=== PATIENT | female | born 1945 | race Caucasian/White ===

== ENCOUNTER 2018-12-12 15:27 | Emergency (ER) | payer OTHER ==
--- NOTE | 2018-12-12 15:38 | PDOC ---
Rapid Medical Evaluation Time Seen by Provider: 12/12/18 15:36 Medical Evaluation: Allergies Allergy/AdvReac Type Severity Reaction Status Date / Time EVENS Inhibitors Allergy Severe lip Unverified 08/16/12 15:31 swelling amoxicillin [Amoxicillin] Allergy Intermediate Itching Unverified 08/16/12 15:31 esomeprazole magnesium Allergy Intermediate Swelling Verified 12/22/11 09:26 [From Nexium] latex Allergy Mild Itching Verified 12/22/11 09:26 broccoli AdvReac Intermediate Itching Uncoded 08/16/12 15:33 coliflawer AdvReac Intermediate Itching Uncoded 08/16/12 15:33 watermelon AdvReac Intermediate Itching Uncoded 08/16/12 15:33 12/12/18 15:36 Patient had brief in-person examination in triage cc:lower abdominal pain today and dysuria with retention HPI: alert and oriented x 3 + tenderness in lower abdomen orders: u/a and urine culture This patient will proceed to ed for further evaluation Discharge Disposition - Diagnosis Dysuria - Referrals - Patient Instructions - Post Discharge Activity
[2018-12-12 15:39] VITALS: BMI 29.2
[2018-12-12] MEDS ORDERED: IBUPROFEN 600 MG TABLET (FP) PO ONE ×2 (16:01→17:25)
[2018-12-12 16:13] LABS: EPI CELLS 0.4 /HPF (0-5/HPF); HYALINE CASTS 2 /lpf (0-8); URINE APPEARANCE CLOUDY; URINE BACTERIA 33.5 /hpf (NEGATIVE); URINE BILIRUBIN NEGATIVE (NEGATIVE); URINE COLOR ORANGE; URINE GLUCOSE (UA) NEGATIVE (NEGATIVE); URINE KETONE NEGATIVE (NEGATIVE); URINE LEUK ESTERASE 3+ (NEGATIVE); URINE NITRITE NEGATIVE (NEGATIVE); URINE PROTEIN 1+ (NEGATIVE); URINE RBC 116 /hpf (0-4); URINE UROBILINOGEN 0.2 mg/dL (0.2-1.0); URINE WBC 72 /hpf (0-5)
--- NOTE | 2018-12-12 16:48 | PDOC ---
History of Present Illness - General Chief Complaint: Pain Stated Complaint: ABD. PAIN Time Seen by Provider: 12/12/18 15:36 History Source: Patient - History of Present Illness Timing/Duration: reports: constant Past History - Past Medical History Allergies/Adverse Reactions: Allergies Allergy/AdvReac Type Severity Reaction Status Date / Time EVENS Inhibitors Allergy Severe lip Verified 12/12/18 17:20 swelling amoxicillin [Amoxicillin] Allergy Intermediate Itching Verified 12/12/18 17:20 esomeprazole magnesium Allergy Intermediate Swelling Verified 12/12/18 17:20 [From Nexium] latex Allergy Mild Itching Verified 12/12/18 15:39 broccoli AdvReac Intermediate Itching Uncoded 12/12/18 15:39 coliflawer AdvReac Intermediate Itching Uncoded 12/12/18 15:39 watermelon AdvReac Intermediate Itching Uncoded 12/12/18 15:39 Home Medications: Ambulatory Orders Amlodipine Besylate [Norvasc] 10 mg PO DAILY 12/22/11 Simvastatin 20 mg PO DAILY 12/22/11 Cholecalciferol (Vitamin D3) [Vitamin D-3] 2,000 unit PO DAILY capsule Magnesium Oxide [Magnesium] 250 mg PO DAILY tablet 08/28/14 Nebivolol HCl [Bystolic] 10 mg PO DAILY tablet 09/17/16 Ranolazine [Ranexa] 500 mg PO BID 09/17/16 Nitrofurantoin Monohyd/M-Cryst [Macrobid -] 100 mg PO BID #14 capsule 12/12/18 Phenazopyridine HCl [Pyridium] 100 mg PO TID #5 tablet 12/12/18 Anemia: No Asthma: No Cancer: No Cardiac Disorders: No CVA: No COPD: No CHF: No Dementia: No Diabetes: No GI Disorders: Yes (COLONIC POLYPS PUD) Disorders: No HTN: Yes Hypercholesterolemia: Yes Liver Disease: No Seizures: No Thyroid Disease: No - Surgical History Abdominal Surgery: Yes Appendectomy: No Cardiac Surgery: No Cholecystectomy: No Lung Surgery: No Neurologic Surgery: No Orthopedic Surgery: No - Immunization History Td Vaccination: Yes Immunization Up to Date: No - Suicide/Smoking/Psychosocial Hx Smoking Status: No Smoking History: Never smoked Number of Cigarettes Smoked Daily: 0 Information on smoking cessation initiated: No Hx Alcohol Use: No Drug/Substance Use Hx: No Substance Use Type: Alcohol Hx Substance Use Treatment: No Review of Systems - Review of Systems Constitutional: No: Chills, Fever, Malaise, Weakness ABD/GI: No: Nausea, Vomiting : Yes: Dysuria, Frequency, Hematuria. No: Flank Pain Musculoskeletal: No: Back Pain *Physical Exam - Vital Signs Last Vital Signs Temp Pulse Resp BP Pulse Ox 97.9 F 70 19 181/83 H 98 12/12/18 15:36 12/12/18 15:36 12/12/18 15:36 12/12/18 15:36 12/12/18 15:36 - Physical Exam General Appearance: Yes: Appropriately Dressed. No: Apparent Distress HEENT: positive: Normal Voice Neck: positive: Supple Respiratory/Chest: negative: Respiratory Distress Gastrointestinal/Abdominal: positive: Normal Bowel Sounds, Soft. negative: Tender, Pulsatile Mass, Distended, Guarding, Rebound Musculoskeletal: negative: CVA Tenderness Integumentary: positive: Dry, Warm Neurologic: positive: Fully Oriented, Alert, Normal Mood/Affect ED Treatment Course - ADDITIONAL ORDERS Additional order review: Laboratory Results 12/12/18 15:53 Urine Color [place] Urine Appearance Cloudy Urine pH 8.0 Ur Specific [place] 1.009 L Urine Protein 1+ H Urine Glucose (UA) Negative Urine Ketones Negative Urine Blood 3+ H Urine Nitrite Negative Urine Bilirubin Negative Urine Urobilinogen 0.2 Ur Leukocyte Esterase 3+ H Urine WBC (Auto) 72 Urine RBC (Auto) 116 Urine Casts (Auto) 2 U Epithel Cells (Auto) 0.4 Urine Bacteria (Auto) 33.5 Medical Decision Making - Medical Decision Making 12/12/18 16:47 73 yo F, h/o anemia, HTN, HLD, here w/ dysuria w/ hematuria and frequency that started at some point today. No acute abd/flank pain and no n/v/f/c. Last UTI was > 30 years ago per pt. No h/o renal stones See exam UTI UA w/ LE/bld w/ >70 wbc and 33 aysha, ucx sent Jason well and in NAD w/ no e/o pyelo Unlikely needs labs Will given dose of abx and pyridium here -will discuss dispo w/ ED attg 12/12/18 18:23 Pt since given meds. Will dc as per d/w ED attg with strict return precautions given *DC/Admit/Observation/Transfer Diagnosis at time of Disposition: Dysuria - Discharge Dispostion Condition at time of disposition: Good - Prescriptions Prescriptions: Nitrofurantoin Monohyd/M-Cryst [Macrobid -] 100 mg PO BID #14 capsule Phenazopyridine HCl [Pyridium] 100 mg PO TID #5 tablet - Referrals - Patient Instructions Printed Discharge Instructions: Urinary Tract Infection Additional Instructions: It appears to have a UTI at this time. Take antibiotics and Pyridium as prescribed and return to ER for any worsening of symptoms, otherwise follow-up with your PMD as needed - Post Discharge Activity
[2018-12-12] MEDS ORDERED: PHENAZOPYRIDINE HCL 100 MG TABLET (FP) PO ONE (16:49)
[2018-12-12] MEDS ORDERED: NITROFURANTOIN MACROCRYSTAL 50 MG CAPSULE (FP) PO SCH (17:00)
[2018-12-12] MEDS ORDERED: PHENAZOPYRIDINE HCL 100 MG TABLET (FP) ONE (17:24)
[2018-12-12] MEDS ORDERED: NITROFURANTOIN MACROCRYSTAL 50 MG CAPSULE (FP) ONE (17:24)
[2018-12-12 17:51] VITALS: BP 142/86; PULSE 73; TEMP 97.7
== END 2018-12-12 17:46 | disposition home or self-care (01) ==
LOC: JER 15:27
DX: N39.0 Urinary tract infection, site not specified (principal); I10 Essential (primary) hypertension; E78.5 Hyperlipidemia, unspecified; Z87.19 Personal history of other diseases of the digestive system
CPT/HCPCS: 81003; 87086; 87186; 99282-25

== ENCOUNTER 2023-05-25 06:17 | Day surgery (SDC) | payer OTHER ==
[2023-05-19 15:32] VITALS: BMI 25.6
[2023-05-25] MEDS ORDERED: OXYMETAZOLINE 0.05% NASAL SOLUTION 15 ML BOTTLE NS ONE (07:12)
[2023-05-25] MEDS ORDERED: ERYTHROMYCIN 0.5% OPHTHALMIC OINTMENT 3.5 GM TUBE ONE (07:12)
[2023-05-25] MEDS ORDERED: TETRACAINE 0.5% OPHTH SOLN 2 ML BOTTLE ONE (07:12)
[2023-05-25] MEDS ORDERED: POVIDONE-IODINE 5% OPHTHALMIC PREP 30 ML SOLUTION ONE (07:13)
[2023-05-25] MEDS ORDERED: BUPIVACAINE HCL/PF 0.5% (5MG/ML) 10 ML VIAL ONE (07:13)
[2023-05-25] MEDS ORDERED: ceFAZolin SODIUM 1 GM VIAL ONE ×2 (07:13→08:19)
[2023-05-25] MEDS ORDERED: LIDOCAINE 1%/EPI 1:100000 (20 ML MULTI DOSE VIAL) ONE (07:13)
[2023-05-25] MEDS ORDERED: SUCCINYLCHOLINE CHLORIDE 200 MG/10 ML SYRINGE ONE (07:36)
[2023-05-25] MEDS ORDERED: MIDAZOLAM HCL 2 MG/2 ML SINGLE DOSE VIAL ONE (07:36)
[2023-05-25] MEDS ORDERED: PROPOFOL 20 ML ONE (07:36)
[2023-05-25] MEDS ORDERED: ONDANSETRON 4 MG/2 ML VIAL ONE (08:19)
[2023-05-25] MEDS ORDERED: DEXAMETHASONE SOD PHOSPHATE 4 MG/1 ML VIAL ONE (08:19)
[2023-05-25] MEDS ORDERED: ePHEDrine SULFATE 50 MG/1 ML AMPULE ONE (08:20)
[2023-05-25] MEDS ORDERED: LACTATED RINGERS SOLUTION 1,000 ML IV SCH (09:30)
[2023-05-25] MEDS ORDERED: ONDANSETRON 4 MG/2 ML VIAL IVPUSH PRN (09:30)
[2023-05-25] MEDS ORDERED: ACETAMINOPHEN INJECTION 100 ML IVPB ONE (09:47)
[2023-05-25] MEDS: ACETAMINOPHEN 1000 MG/100 ML BAG IVPB ONE (10:00)
[2023-05-25 10:49] VITALS: RESP 18; TEMP 96.8
[2023-05-25 10:57] VITALS: BP 150/52; PULSE 62
== END 2023-05-25 10:57 | disposition home or self-care (01) ==
LOC: FASU 06:17
PROVIDERS: ATTEND Ophthalmology
PROC: 09BU0ZZ Excision of Right Ethmoid Sinus, Open Approach (ICD-10-PCS; 2023-05-25)
PROC: 087X0ZZ Dilation of Right Lacrimal Duct, Open Approach (ICD-10-PCS; 2023-05-25)
PROC: 08BX0ZX Excision of Right Lacrimal Duct, Open Approach, Diagnostic (ICD-10-PCS; 2023-05-25)
PROC: 081X0Z3 Bypass Right Lacrimal Duct to Nasal Cavity, Open Approach (ICD-10-PCS; principal; 2023-05-25 08:19)
DX: H04.551 Acquired stenosis of right nasolacrimal duct (principal)
CPT/HCPCS: 88304-TC; 94760; J0131

== ENCOUNTER 2023-08-03 10:12 | Day surgery (SDC) | payer OTHER ==
[2023-07-28 15:44] VITALS: BMI 25.6
[2023-08-03] MEDS ORDERED: PROPOFOL 20 ML ONE ×2 (13:04→15:00)
[2023-08-03] MEDS ORDERED: ONDANSETRON 4 MG/2 ML VIAL IVPUSH PRN (13:13)
[2023-08-03] MEDS ORDERED: TETRACAINE 0.5% OPHTH SOLN 2 ML BOTTLE ONE (13:15)
[2023-08-03] MEDS ORDERED: OXYMETAZOLINE 0.05% NASAL SOLUTION 15 ML BOTTLE NS ONE (13:15)
[2023-08-03] MEDS ORDERED: ERYTHROMYCIN 0.5% OPHTHALMIC OINTMENT 3.5 GM TUBE ONE (13:15)
[2023-08-03] MEDS ORDERED: ceFAZolin SODIUM 1 GM VIAL ONE ×2 (13:15→13:30)
[2023-08-03] MEDS ORDERED: BUPIVACAINE HCL/PF 0.5% (5MG/ML) 10 ML VIAL ONE (13:15)
[2023-08-03] MEDS ORDERED: LIDOCAINE 1%/EPI 1:100000 (20 ML MULTI DOSE VIAL) ONE ×2 (13:15→13:54)
[2023-08-03] MEDS ORDERED: POVIDONE-IODINE 5% OPHTHALMIC PREP 30 ML SOLUTION ONE (13:15)
[2023-08-03] MEDS ORDERED: LACTATED RINGERS SOLUTION 1,000 ML IV SCH (13:15)
[2023-08-03] MEDS ORDERED: THROMBIN (BOVINE) 5,000 UNIT VIAL TP ONE (13:16)
[2023-08-03] MEDS ORDERED: VANCOMYCIN 1,000 MG VIAL (RESTRICTED TO ID ONLY) ONE (13:25)
[2023-08-03] MEDS ORDERED: PROPOFOL 60 ML ONE (13:25)
[2023-08-03] MEDS ORDERED: DEXAMETHASONE SOD PHOSPHATE 4 MG/1 ML VIAL ONE (13:30)
[2023-08-03] MEDS ORDERED: ONDANSETRON 4 MG/2 ML VIAL ONE (13:30)
[2023-08-03] MEDS ORDERED: LIDOCAINE HCL/PF 2% SDV 5ML VIAL ONE (13:30)
[2023-08-03] MEDS ORDERED: ROCURONIUM BROMIDE 50 MG/5 ML SYRINGE ONE (13:33)
[2023-08-03] MEDS ORDERED: SUGAMMADEX SODIUM 200 MG/2 ML VIAL ONE (15:03)
[2023-08-03] MEDS: ACETAMINOPHEN 500 MG TABLET (FP) ONE (16:45)
[2023-08-03 17:22] VITALS: RESP 18; TEMP 97.4
[2023-08-03 17:36] VITALS: BP 152/60; PULSE 55
== END 2023-08-03 17:39 | disposition home or self-care (01) ==
LOC: FASU 10:12
PROVIDERS: ATTEND Ophthalmology
PROC: 081X0Z3 Bypass Right Lacrimal Duct to Nasal Cavity, Open Approach (ICD-10-PCS; 2023-08-03)
PROC: 09BV0ZZ Excision of Left Ethmoid Sinus, Open Approach (ICD-10-PCS; 2023-08-03)
PROC: 081Y0Z3 Bypass Left Lacrimal Duct to Nasal Cavity, Open Approach (ICD-10-PCS; principal; 2023-08-03 14:09)
DX: H04.522 Eversion of left lacrimal punctum (principal); H04.202 Unspecified epiphora, left side
CPT/HCPCS: 88304-TC; 88311-TC; 94760

== ENCOUNTER 2023-11-23 07:16 | Day surgery (SDC) | payer OTHER ==
[2023-11-18 17:14] VITALS: BMI 23.8
[2023-11-23] MEDS ORDERED: ceFAZolin SODIUM 1 GM VIAL ONE ×2 (08:38→10:05)
[2023-11-23] MEDS ORDERED: PROPOFOL 20 ML ONE (08:38)
[2023-11-23] MEDS ORDERED: MIDAZOLAM HCL 2 MG/2 ML SINGLE DOSE VIAL ONE (08:38)
[2023-11-23] MEDS ORDERED: TETRACAINE 0.5% OPHTH SOLN 2 ML BOTTLE ONE (09:39)
[2023-11-23] MEDS ORDERED: BSS (NA/CA/MG/K) BALANCED SALT SOLUTION OPHTH SOLN 15 ML BOTTLE ONE (09:39)
[2023-11-23] MEDS ORDERED: OXYMETAZOLINE 0.05% NASAL SOLUTION 15 ML BOTTLE NS ONE (10:20)
[2023-11-23] MEDS ORDERED: THROMBIN (BOVINE) 5,000 UNIT VIAL TP ONE (10:20)
[2023-11-23 15:19] VITALS: RESP 20
[2023-11-23 15:22] VITALS: BP 135/65; PULSE 57; TEMP 97.3
== END 2023-11-23 12:12 | disposition home or self-care (01) ==
LOC: FASU 07:16
PROVIDERS: ATTEND Ophthalmology
PROC: 08P Eye, Removal (ICD-10-PCS; 2023-11-23)
PROC: 08P Eye, Removal (ICD-10-PCS; principal; 2023-11-23 10:13)
DX: H04.551 Acquired stenosis of right nasolacrimal duct (principal); H04.552 Acquired stenosis of left nasolacrimal duct
CPT/HCPCS: 88300-TC; 94760